=== PATIENT | female | born 1955 | race Caucasian/White ===

== ENCOUNTER → 2017-01-13 | Day surgery (SDC) | payer OTHER ==
--- NOTE | 2017-01-14 11:21 | PATH ---
Surgical Pathology Report Patient Name: MARY GRACE KAUFMAN [facility]. Rec. #: [id number] /Age/Gender: 1955 (Age: 61) / F Account: [id number] Location: [facility] Taken: 01/13/2017 Received: 01/13/2017 Reported: 01/14/2017 Physicians: Lamberto Pearce M.D. Specimen(s) Received A: 10 O'CLOCK RIGHT BREAST BIOPSY 1.4 CM ANTERIOR TO SITE 2 B: 10 O'CLOCK RIGHT BREAST CORE BIOPSY Clinical History 2 foci of enhancement 10:00 right breast, site 1 is 1.4 cm anterior to site 2. Final Diagnosis A. RIGHT BREAST, 10:00 SITE 1 (1.4 CM ANTERIOR TO SITE 2), NEEDLE CORE BIOPSY: BENIGN BREAST TISSUE WITH FIBROCYSTIC CHANGES INCLUDING USUAL DUCTAL HYPERPLASIA (UDH), STROMAL FIBROSIS, DUCTAL DILATATION, AND CYSTIC APOCRINE METAPLASIA. MICROCALCIFICATIONS ARE IDENTIFIED WITHIN BENIGN DUCTAL STRUCTURES. B. RIGHT BREAST, 10:00 SITE 2, NEEDLE CORE BIOPSY: COMPLEX SCLEROSING LESION/RADIAL SCAR ARISING IN A BACKGROUND OF FIBROCYSTIC CHANGES INCLUDING STROMAL FIBROSIS, DUCTAL DILATATION, AND CYSTIC APOCRINE METAPLASIA. PORTION OF FIBROADENOMA PRESENT. FOCAL COLLAGENOUS SPHERULOSIS PRESENT. Comment: Recommend correlation with clinical and radiologic findings and follow up as clinically indicated. Electronically Signed Ortiz Ramon M.D. Gross Description A. Received in formalin labeled "right breast lesion 1," is a 2.5 x 1.8 x 0.3 cm aggregate of multiple case-yellow, irregular to cylindrical portions of fibroadipose tissue. The formalin is filtered and the specimen is entirely submitted in one cassette. B. Received in formalin labeled "right breast lesion 2," is a 2.5 x 2.4 x 0.3 cm aggregate of multiple case-yellow, irregular to cylindrical portions of fibroadipose tissue. The formalin is filtered and the specimen is entirely submitted in one cassette. Time to formalin fixation: 2 minutes Total formalin fixation time: Approximately 6 hours. 01/13/2017 saudi01/13/2017
== END | disposition home or self-care (01) ==
LOC: FRADUS-SUR 10:13
PROVIDERS: ATTEND Surgery Surgical Oncology
PROC: 0HBT3ZX Excision of Right Breast, Percutaneous Approach, Diagnostic (ICD-10-PCS; principal; 2017-01-13)
DX: N63 Unspecified lump in breast (principal); N60.81 Other benign mammary dysplasias of right breast; N60.31 Fibrosclerosis of right breast; N60.11 Diffuse cystic mastopathy of right breast; N64.89 Other specified disorders of breast; D24.1 Benign neoplasm of right breast
CPT/HCPCS: 19085; 19086; 88305-TC; A4648; C1887; G0206-TC

== ENCOUNTER 2017-01-29 10:44 | Day surgery (SDC) | payer OTHER ==
[2017-01-23 10:47] VITALS: BMI 30.4
--- NOTE | 2017-01-26 11:33 | HP ---
Admitting History and Physical - Primary Care Physician PCP: Anjel Acosta - Admission Chief Complaint: left breast cancer DCIS History of Present Illness: 61 year old postmenapausal female with left breast central density on mammogram 07/2016. . Compression views and Us showed left 9:00 density 1.1 cm and another left 4;00. US core biopsies left 9:00 density was DCIS and left 4:00 density was benign. MRI breast showed additional findings bilaterally. History Source: Patient Limitations to Obtaining History: No Limitations - Past Medical History ...: No - Smoking History Smoking history: Former smoker Have you smoked in the past 12 months: No If you are a former smoker, when did you quit?: 1978 - Alcohol/Substance Use Hx Alcohol Use: Yes (SOCIALLY) Home Medications - Allergies Allergies/Adverse Reactions: Allergies Allergy/AdvReac Type Severity Reaction Status Date / Time No Known Allergies Allergy Verified 01/23/17 10:47 - Home Medications Home Medications: Ambulatory Orders Acetaminophen [Tylenol -] 325 mg PO Q6H PRN 01/23/17 Lisinopril 10 mg PO DAILY 01/23/17 [place]-3 Fatty Acids [[place]-3] 1 cap PO DAILY 01/23/17 Vitamin E 400 unit PO DAILY 01/23/17
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
[2017-01-29] MEDS ORDERED: MIDAZOLAM HCL 2 MG/2 ML SINGLE DOSE VIAL ONE (14:11)
[2017-01-29] MEDS ORDERED: PROPOFOL 20 ML ONE ×2 (14:41)
[2017-01-29] MEDS ORDERED: ONDANSETRON 4 MG/2 ML VIAL ONE ×2 (14:54→15:37)
[2017-01-29] MEDS ORDERED: ceFAZolin SODIUM 1 GM VIAL ONE (14:54)
[2017-01-29] MEDS ORDERED: DEXAMETHASONE SOD PHOSPHATE 4 MG/1 ML VIAL ONE ×2 (14:54→15:37)
[2017-01-29] MEDS ORDERED: oxyCODONE HCL 5 MG TABLET PO PRN (16:05)
[2017-01-29] MEDS ORDERED: ONDANSETRON 4 MG/2 ML VIAL IVPUSH PRN (16:05)
[2017-01-29] MEDS ORDERED: KETOROLAC TROMETHAMINE 30 MG/1 ML VIAL IVPUSH PRN (16:08)
[2017-01-29] MEDS ORDERED: ONDANSETRON 4 MG/2 ML VIAL IVPB PRN (16:08)
[2017-01-29] MEDS ORDERED: LACTATED RINGERS SOLUTION 1,000 ML IV SCH (16:15)
[2017-01-29] MEDS ORDERED: DEXTROSE 5%-0.45% SALINE 1,000 ML IV SCH (16:15)
[2017-01-29 18:11] VITALS: TEMP 98
[2017-01-29 18:48] VITALS: BP 110/78; PULSE 75
--- NOTE | 2017-01-30 14:40 | OP ---
DATE OF OPERATION: 01/29/2017 PRIMARY SURGEON: Chun Acosta MD PREOPERATIVE DIAGNOSIS: Left breast ductal carcinoma in situ. POSTOPERATIVE DIAGNOSIS: Left breast ductal carcinoma in situ. PROCEDURE: Left breast wide excision with mammographic needle localization. ANESTHESIA: General laryngeal mask airway anesthesia. COMPLICATIONS: There were no complications. INDICATIONS: Briefly, the patient is a 61-year-old postmenopausal white female of [facility] descent. She has no family history of breast or ovarian cancer. She underwent a mammography in July of 2016 showing a questionable left breast central density and was done August,. She had a left breast 9 o'clock 1.1-cm density 4 cm from the nipple as well as a left breast 4 o'clock density 1 cm from the nipple. She underwent ultrasound core biopsies of both these area in the 9 o'clock region, showed intermediate grade DCIS which was ER/CO positive, and the 4 o'clock region showed stromal fibrosis. The patient then underwent an MRI showing a couple of areas in the right breast which were biopsied showing benign changes with one showing a radial scar, the other showing stromal fibrosis. The patient was advised in undergoing a left breast wide excision with needle localization. She was brought in for the procedure on January 29, 2017. She underwent a needle localization in Radiology and was brought to the holding area at [place]. In the holding area, site verification was made and informed consent was obtained. DESCRIPTION OF PROCEDURE: She was brought into the operating room and laid on the OR table in the supine position. Venodynes were placed on the lower extremities. She received a gram of Ancef prior to incision. She underwent general laryngeal mask airway anesthesia. The left breast was sterilely prepped and draped in the usual fashion with the wire prepped in the field. A curvilinear incision was made around the periareolar region of the left breast nipple areolar complex, and dissection was undertaken around the needle localization wire. The breast tissue was completely dissected from around the wire all the way down to the pectoralis major muscle. The specimen was oriented with the long-lateral short-superior suture, and specimen radiographs showed removal of the clip in the middle of the specimen. Separate margins were taken on the superior, inferior, medial, lateral, deep, and anterior margins with sutures marking the biopsy cavity side. Hemostasis was achieved using electrocautery. The wound was copiously irrigated with warm sterile saline. The breast tissue was then reapproximated using 2-0 plain suture. The skin was closed using interrupted 3-0 deep dermal Vicryl suture and a running 4-0 subcuticular Biosyn suture. We did do a partial tissue transfer closure to close the defect with about a 3 x 4 cm breast tissue oriented to the wound at the time of closure. All sponge and needle counts were correct at the end of the case. Sterile dressing was applied with Steri-Strips and Mastisol, and she was placed in a surgical bra postoperatively. The patient had the laryngeal mask airway tube removed at the end of the case and was recovered in the post-anesthesia care unit. She will be discharged home the same day once discharge criteria are met. She is to follow up in the office in one week for formal wound pathology check. CHUN ACOSTA M.D. [id number]
--- NOTE | 2017-02-02 16:02 | PATH ---
Surgical Pathology Report Patient Name: MARY GRACE KAUFMAN [facility]. Rec. #: [id number] /Age/Gender: 1955 (Age: 61) / F Account: [id number] Location: [facility] Taken: 01/29/2017 Received: 01/29/2017 Reported: 02/02/2017 Physicians: Anjel Acosta M.D. Specimen(s) Received A: LEFT BREAST WIDE EXCISION B: LEFT BREAST SUPERIOR MARGIN C: LEFT BREAST LATERAL MARGIN D: LEFT BREAST INFERIOR MARGIN E: LEFT BREAST MEDIAL MARGIN F: LEFT BREAST DEEP MARGIN G: LEFT BREAST ANTERIOR MARGIN Clinical History Partial mastectomy for DCIS Final Diagnosis A. LEFT BREAST, WIDE EXCISION WITH WIRE LOCALIZATION: DUCTAL CARCINOMA IN SITU (DCIS), INTERMEDIATE NUCLEAR GRADE, CRIBRIFORM AND MICROPAPILLARY PATTERNS WITH ASSOCIATED CALCIFICATION. DCIS MEASURES AT LEAST 8 MM IN GREATEST DIMENSION, AND IS PRESENT IN 2 OF 12 BLOCKS. DCIS IS LESS THAN 1 MM FROM THE ANTERIOR AND SUPERIOR ASPECTS OF THIS SPECIMEN (SEE SPECIMENS B-G FOR FINAL MARGINS). CHANGES CONSISTENT WITH PRIOR BIOPSY SITE PRESENT. REMAINING BREAST TISSUE WITH ATYPICAL DUCTAL HYPERPLASIA (ADH) ARISING IN A BACKGROUND OF FIBROCYSTIC CHANGES INCLUDING USUAL DUCTAL HYPERPLASIA (UDH), STROMAL FIBROSIS, DUCTAL DILATATION, AND CYSTIC APOCRINE METAPLASIA. COLLAGENOUS SPHERULOSIS IS PRESENT. B. LEFT BREAST, SUPERIOR MARGIN, EXCISION: BENIGN BREAST TISSUE WITH FIBROCYSTIC CHANGES INCLUDING STROMAL FIBROSIS AND DUCTAL DILATATION. C. LEFT BREAST, LATERAL MARGIN, EXCISION: FIBROADENOMA, AND FIBROCYSTIC CHANGES INCLUDING STROMAL FIBROSIS, DUCTAL DILATATION, CYSTIC APOCRINE METAPLASIA, AND ASSOCIATED CALCIFICATION. D. LEFT BREAST, INFERIOR MARGIN, EXCISION: BENIGN BREAST TISSUE WITH FIBROCYSTIC CHANGES INCLUDING STROMAL FIBROSIS AND DUCTAL DILATATION. E. LEFT BREAST, MEDIAL MARGIN, EXCISION: BENIGN BREAST TISSUE WITH FIBROCYSTIC CHANGES INCLUDING STROMAL FIBROSIS, DUCTAL DILATATION, AND CYSTIC APOCRINE METAPLASIA. F. LEFT BREAST, DEEP MARGIN, EXCISION: BENIGN SKELETAL MUSCLE AND ADIPOSE TISSUE G. LEFT BREAST, ANTERIOR MARGIN, EXCISION: BENIGN BREAST TISSUE WITH FIBROCYSTIC CHANGES INCLUDING STROMAL FIBROSIS AND DUCTAL DILATATION. Comment: Immunohistochemical stains for p63 and SMM-HC on block A8 performed and interpreted at [facility] show preservation of the myoepithelial cell layer. Also see prior specimens [id number] and [id number]. Comments DCIS of Breast: Surgical Pathology Cancer Case Summary Based on AJCC/UICC TNM, 7th edition Procedure _X__ Excision with image-guided localization Specimen Laterality _X__ Left Estimated size (extent) of DCIS (greatest dimension using gross and microscopic evaluation): at least 8 mm and: Number of blocks with DCIS: 2 Number of blocks examined: 29 Nuclear Grade _X__ Grade II (intermediate) Necrosis _X__ Not identified Microcalcifications _X__ Present in both DCIS and non-neoplastic tissue Margins _X__ Margin(s) uninvolved by DCIS Distance from closest margin: Cannot be determined. DCIS is <1mm from the anterior and superior aspects of the wide excision (Specimen A), but is not present in the final margins (Specimens B-G). Pathologic Staging (pTNM) Primary Tumor (pT) _X__ pTis (DCIS): Ductal carcinoma in situ Biomarker Studies Results of ER and SD studies performed on block "A8" at [facility] are as follows: ER (clone [id number] mouse monoclonal antibody by [employer]): 80% nuclear staining with moderate intensity (Positive). SD (clone16 mouse monoclonal antibody by [employer]) : 40% nuclear staining with strong intensity (Positive). Positive and negative controls (internal if applicable) show appropriate results. Formalin fixation and cold ischemic times are within current ASCO/CAP recommendations for ER, SD and Her2 testing. Electronically Signed Ortiz Ramon M.D. Gross Description A. Received in formalin, labeled "left breast wide excision," is a 4.8 x 3.5 x 2.2 cm. case-yellow, irregular, portion of fibroadipose tissue with a needle localization wire present. There is a short suture marking the superior aspect and a long suture marking the lateral aspect, per the surgeon. There is no skin or nipple present. The specimen is inked as follows: superior and lateral blue; inferior green; medial yellow; anterior red; deep black. The specimen is serially sectioned from lateral to medial. Sectioning reveals a focus of hemorrhage, consistent with a previous biopsy site surrounded by abundant white, focally firm fibrous tissue. No definitive masses are identified. The specimen is entirely and sequentially submitted in 12 cassettes with the lateral margin in cassette 1 and the medial margin in cassette 12 (one whole bisected section in cassettes 8-9; focus of hemorrhage in cassettes 5-9). Time to formalin fixation: 3 minutes Total formalin fixation time: Approximately 27 hours. B. Received in formalin labeled "left breast superior margin," is a 2.5 x 1.7 x 0.7 cm irregular portion of fibroadipose tissue with a suture marking the biopsy cavity side, per the surgeon. The new margin is inked blue and the specimen is serially sectioned. The specimen is entirely submitted in 3 cassettes. C. Received in formalin labeled "left breast lateral margin," is a 2.5 x 1.5 x 1.0 cm irregular portion of fibroadipose tissue with a suture marking the biopsy cavity side, per the surgeon. The new margin is inked blue and the specimen is serially sectioned. Sectioning reveals a 1.0 x 1.0 x 1.0 cm case, well circumscribed, rubbery nodule abutting the new margin. The specimen is entirely and sequentially submitted in 4 cassettes. D. Received in formalin labeled "left breast inferior margin," is a 2.5 x 1.7 x 0.8 cm irregular portion of fibroadipose tissue with a suture marking the biopsy cavity side, per the surgeon. The new margin is inked blue and the specimen is serially sectioned. The specimen is entirely submitted in 3 cassettes. E. Received in formalin labeled "left breast medial margin," is a 2.5 x 1.7 x 0.7 cm irregular portion of fibroadipose tissue with a suture marking the biopsy cavity side, per the surgeon. The new margin is inked blue and the specimen is serially sectioned. The specimen is entirely submitted in 3 cassettes. F. Received in formalin labeled "left breast deep margin," is a 1.8 x 1.7 x 0.7 cm irregular portion of fibroadipose tissue with a suture marking the biopsy cavity side, per the surgeon. The new margin is inked in blue and the specimen is serially sectioned. The specimen is entirely submitted in 2 cassettes. G. Received in formalin labeled "left breast anterior margin," is a 1.8 x 0.9 x 0.7 cm irregular portion of fibroadipose tissue with a suture marking the biopsy cavity side, per the surgeon. The new margin is inked blue and the specimen is serially sectioned. The specimen is entirely submitted in 2 cassettes. 01/30/2017 saudi01/30/2017
== END 2017-01-29 18:30 | disposition home or self-care (01) ==
LOC: FASU 10:44
PROVIDERS: ATTEND Surgery Surgical Oncology
PROC: 0HBU0ZZ Excision of Left Breast, Open Approach (ICD-10-PCS; principal; 2017-01-29 15:00)
DX: D05.92 Unspecified type of carcinoma in situ of left breast (principal); N60.32 Fibrosclerosis of left breast; N64.89 Other specified disorders of breast
CPT/HCPCS: 19281; 88307-TC; 88341-TC; 88342-TC; 94760